=== PATIENT | male | born 1980 | race Caucasian/White ===

== ENCOUNTER 2022-09-06 09:25 | Emergency (ER) | payer OTHER, SELFPAY ==
[2022-09-06 09:32] VITALS: BP 149/91; PULSE 76; RESP 20; TEMP 37; O2SAT 97; BMI 39.3
--- NOTE | 2022-09-06 09:43 | CRLHL7_ITS ---
For Patients: As a result of the Century Cures Act, medical imaging exams and procedure reports are released immediately into your electronic medical record. You may view this report before your referring provider. If you have questions, please contact your health care provider. Indication: Shortness of breath, abdominal pain Technique: Volumetric multidetector CT images of the chest, abdomen, and pelvis were obtained after the administration of intravenous contrast. 134 cc Isovue 370 low osmolar intravenous contrast Comparison: CT chest June 13, 2021 FINDINGS: CHEST The thoracic inlet is unremarkable. The thyroid gland is within normal limits. The thoracic aorta is nonaneurysmal. There is no filling defect to suggest pulmonary embolus. There is no mediastinal, hilar, or axillary adenopathy. There is no focal consolidation, effusion, or pneumothorax. There is demonstration of a 5.8 millimeter granuloma in the peripheral left lower lobe. The thoracic osseus structures are intact without fracture, lytic, or blastic lesion. The thoracic vertebral body heights are grossly maintained with minimal endplate Schmorl`s defects. There is no significant spondylolisthesis or displaced fracture. ABDOMEN AND PELVIS The liver is normal in attenuation and size. The portal vein is patent. The spleen is normal in attenuation and size. The gallbladder is unremarkable without radiopaque calculus. There is no intrahepatic or common ductal dilatation. There is mild thickening of the gastric antrum with mild hiatal hernia. The pancreas is normal in enhancement without significant atrophy. The adrenal glands are unremarkable without evidence of adenoma. The kidneys are preserved and corticomedullary differentiation. There is no hydronephrosis or radiopaque calculus. There is a moderate diffuse amount of intracolonic stool. There is minimal distal colonic diverticulosis. The appendix is unremarkable without significant inflammatory change. The abdominal aorta is nonaneurysmal with no significant atherosclerotic disease. The remaining solid pelvic viscera are otherwise grossly unremarkable. There is no pathologically enlarged epigastric, mesenteric, retroperitoneal, or pelvic sidewall lymph node. There is diastasis of the rectus musculature with a moderate fat containing umbilical hernia. There is no obvious inflammatory change to suggest incarceration. There is no free air or free fluid. The visualized osseous structures are grossly intact without evidence of displaced fracture, lytic or blastic lesion. The lumbar vertebral body heights are grossly maintained with minimal endplate Schmorl`s defects. There is mild multilevel degenerative disc disease. There is no evidence of displaced fracture dislocation. Impression: 1. No acute cardiopulmonary abnormality. 2. Diastasis of the rectus musculature with superimposed moderate fat containing umbilical hernia. No obvious inflammatory change to suggest incarceration. 3. Mild chronic gastritis changes. Small hiatal hernia. Otherwise, no acute intra-abdominal abnormalities are appreciated. Please note that all CT scans at this facility use dose modulation, iterative reconstruction, and/or weight-based dosing when appropriate to reduce radiation dose to as low as reasonably achievable. Dictated by Dayne Arvizu MD @ 09/06/2022 10:53:48 AM (Electronically Signed)
--- NOTE | 2022-09-06 09:50 | ED.GENADULT ---
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 Patient reports he got diffuse lower abdominal discomfort he has got early satiety he reports as well as he says occasion with activity he feels little short of breath he has had this epigastric discomfort for the last year so on and off with exertion. He does not really feel palpable lump or pressure all the time but he does feel pain after exertion. Any feels that now. It is better than it was this morning. He has had no diabetes, does not take medicine for cholesterol, does not smoke. Related Data Home Medications Medication Instructions Recorded Confirmed No Known Home Medications 05/21/22 09/06/22 Allergies Allergy/AdvReac Type Severity Reaction Status Date / Time No Known Drug Allergies Allergy Verified 09/06/22 08:46 Review of Systems Status of ROS: Reports: 6 or more systems reviewed and unremarkable except as noted in History and below [facility] Medical History RLQ abdominal pain ?R10.31 - Right lower quadrant pain (ICD-10) Umbilical pain ?R10.33 - Periumbilical pain (ICD-10) Social History Smoking Status: Never smoker Do you use any of these nicotine containing products: None Second hand tobacco smoke exposure: No How often do you have a drink containing alcohol: 4 or more times a week How many standard drinks containing alcohol do you have on a typical day: 3 or 4 How often do you have six or more drinks on one occasion: Weekly AUDIT-C Alcohol total score: 8 Non-prescribed substance use: denies use Exam Narrative: Exam Narrative: Objective: Jeff is in no apparent distress Vital signs unremarkable slightly borderline blood pressure HEENT is unremarkable neck is supple heart rhythm regular without murmur abdomen increased BMI, schedule like slight bruise in left lower abdomen. He has got some mild periumbilical palpation tenderness just above the umbilicus superior to it but no palpable mass or rent Denies symptoms extremities are no edema neurologic nonfocal good peripheral perfusion noted Const: Vital Signs, click to edit/add: Vital Signs - 24 hr 09/06/22 09:32 Temperature 98.6 F Pulse Rate [Femora l] 76 Respiratory Rate 20 Blood Pressure [Ri ght Forearm] 149/91 H Pulse Oximetry 97 Oxygen Delivery Me thod Room Air Course Vital Signs Vital signs: Initial Vital Signs Temperature 98.6 F 09/06/22 09:32 Temperature Source Temporal Artery Scan 09/06/22 09:32 Pulse Rate 76 09/06/22 09:32 Respiratory Rate 20 09/06/22 09:32 Blood Pressure 149/91 H 09/06/22 09:32 Blood Pressure Mean 110 H 09/06/22 09:32 Blood Pressure Position Sitting 09/06/22 09:32 Pulse Oximetry 97 09/06/22 09:32 Oxygen Delivery Method Room Air 09/06/22 09:32 Vital Signs Temperature 98.6 F 09/06/22 09:32 Pulse Rate 76 09/06/22 09:32 Respiratory Rate 20 09/06/22 09:32 Blood Pressure 149/91 H 09/06/22 09:32 Pulse Oximetry 97 09/06/22 09:32 Oxygen Delivery Method Room Air 09/06/22 09:32 Temperature 98.6 F 09/06/22 09:32 Pulse Rate 76 09/06/22 09:32 Respiratory Rate 20 09/06/22 09:32 Blood Pressure 149/91 H 09/06/22 09:32 Pulse Oximetry 97 09/06/22 09:32 Oxygen Delivery Method Room Air 09/06/22 09:32 Medical Decision Making [facility] Narrative Medical decision making narrative: Jeff is a pleasant 42-year-old male was lifting something and felt pain is a para in his periumbilical area, he has had this for about the last year on and off. I suspect he has got some type of ventral hernia. He also states that he has had some shortness of breath with exertion and I think he should get a stress echocardiogram will also check a troponin EKG today that shows normal sinus rhythm no acute ST T wave changes. Will check electrolytes, labs, I think also a CT of his chest and abdomen be appropriate given his history of early satiety and some shortness of breath with activity occasionally, and his periumbilical pain to rule out hernia. Addendum 11:[address] scan of the chest looks largely unremarkable he has got a granuloma present in left lower lung. no suggestion of incarceration, but a fat containing rectus diastasis type hernia. At this point I recommend he see general surgery guarding his hernia, no heavy lifting, would recommend Prilosec 20 mg daily for his gastritis I think that will help with his early satiety as well. He should follow up with his regular doctor to consider a stress echocardiogram regarding shortness of breath with activity. He will follow-up sooner to ER if problems or concerns. Lab Data Labs: Lab Results 09/06/22 Range/Units 09:55 WBC 4.86 (4.50-11.00) K/uL RBC 4.82 (4.30-5.90) m/uL Hgb 14.0 (13.5-17.5) gm/dL Hct 41.0 (37.0-53.0) % MCV 85 (80-100) fL MCH 29 (26-34) pg MCHC 34 (32-36) gm/dL RDW Coeff of Lauren 12.0 (11.5-15.5) % Plt Count 219 (140-440) K/uL Neut % (Auto) 57.8 (42.0-72.0) % Lymph % (Auto) 34.2 (20-44) % Coke % (Auto) 6.4 (0.0-11.0) % Eos % (Auto) 1.2 (0.0-7.0) % Baso % (Auto) 0.4 (0.0-3.0) % Neut # (Auto) 2.81 (1.7-7.0) K/uL Lymph # (Auto) 1.66 (0.90-2.90) K/uL Coke # (Auto) 0.30 (0.00-0.90) K/UL Eos # (Auto) 0.06 (0.00-0.50) K/uL Baso # (Auto) 0.02 (0.00-0.30) K/uL D-Dimer Quant (PE/DVT) < 0.27 (0.00-0.50) ug/ml Sodium 138 (135-149) mmol/L Potassium 4.5 (3.6-5.1) mmol/L Chloride 107 (96-114) mmol/L Carbon Dioxide 24 (20-32) mmol/L BUN 15 (5-24) mg/dL Creatinine 1.1 (0.5-1.5) mg/dL Estimated Creat Clear 88.48 Estimated GFR 85 ml/min Glucose 113 (60-115) mg/dL Calcium 9.1 (8.4-10.6) mg/dL Total Bilirubin 0.7 (0.1-1.5) mg/dL Direct Bilirubin 0.3 (0.0-0.5) mg/dL AST 39 H (12-35) U/L ALT 48 (4-50) U/L Alkaline Phosphatase 98 (40-150) U/L C-Reactive Protein 0.8 (0.5-1.0) mg/dL NT-Pro-B Natriuret Pep 87 pg/mL Total Protein 7.3 (6.0-8.3) g/dL Albumin 4.3 (3.3-5.0) g/dL POC Troponin I 0.00 L (0.01-0.04) ng/ml Discharge Plan Discharge Clinical Impression: SONG (dyspnea on exertion), Gastritis, Hernia, ventral Patient Disposition: Home, Self-Care Condition: Stable Additional Instructions: 1. See primary care doctor in the next 2-3 days to recheck how he is doing on Prilosec 20 mg daily to help with gastritis. 2. Please make an appointment with the general surgeons, we can help him with this, to discuss his ventral hernia. 3. Light activity no heavy lifting 4. Would recommend consider a stress echocardiogram from your outpatient doctor, as you have had some shortness of breath occasionally and this should be checked to make sure there is no heart issue. Your EKG today and troponin level which is a measure of heart function was normal. Return to the ED as you need to Activity Level: Light activity Discharge Diet: Regular Prescriptions: No Action No Known Home Medications Follow Up/Referrals: Provider,Not a Local [Primary Care Provider] - Stand Alone Forms: MyHealth Info Instructions
[2022-09-06] MEDS: 0.9 % SODIUM CHLORIDE 500 ML 500 ML IV (10:01)
[2022-09-06 10:12] LABS: Basophils Absolute Auto 0.02 K/uL (0.00-0.30); Basophils Percent Auto 0.4 % (0.0-3.0); Eosinophils Absolute Auto 0.06 K/uL (0.00-0.50); Eosinophils Percent Auto 1.2 % (0.0-7.0); Lymphocytes Absolute Auto 1.66 K/uL (0.90-2.90); Lymphocytes Percent Auto 34.2 % (20-44); Mean Corpuscular HGB Conc 34 gm/dL (32-36); Mean Corpuscular Hemoglobin 29 pg (26-34); Mean Corpuscular Volume 85 fL (80-100); Monocytes Percent Auto 6.4 % (0.0-11.0); Neutrophils Absolute Auto 2.81 K/uL (1.7-7.0); Neutrophils Percent Auto 57.8 % (42.0-72.0); Platelet Count* 219 K/uL (140-440); Red Blood Count 4.82 m/uL (4.30-5.90); White Blood Count* 4.86 K/uL (4.50-11.00)
[2022-09-06 10:18] LABS: Slide Review Reflex No
[2022-09-06 10:26] LABS: Albumin* 4.3 g/dL (3.3-5.0)
[2022-09-06 10:27] LABS: Chloride* 107 mmol/L (96-114); Potassium* 4.5 mmol/L (3.6-5.1); Sodium* 138 mmol/L (135-149)
[2022-09-06 10:29] LABS: Aspartate Amino Transferase* 39 U/L (12-35); Bilirubin Direct* 0.3 mg/dL (0.0-0.5); Bilirubin Total* 0.7 mg/dL (0.1-1.5); Total Protein* 7.3 g/dL (6.0-8.3)
[2022-09-06 10:30] LABS: Alanine Aminotransferase* 48 U/L (4-50); Alkaline Phosphatase* 98 U/L (40-150); Creatinine* 1.1 mg/dL (0.5-1.5); Est. Creatinine Clearance* 88.48; Estimated Glomerular Filt Rate 85 ml/min
[2022-09-06 10:31] LABS: Blood Urea Nitrogen* 15 mg/dL (5-24); Calcium* 9.1 mg/dL (8.4-10.6); Carbon Dioxide* 24 mmol/L (20-32); Glucose* 113 mg/dL (60-115)
[2022-09-06 10:34] LABS: C Reactive Protein* 0.8 mg/dL (0.5-1.0)
[2022-09-06 10:39] LABS: D Dimer Quantitative* < 0.27 ug/ml (0.00-0.50)
[2022-09-06 10:42] LABS: NT Pro B Type NatriureticPept* 87 pg/mL
== END 2022-09-06 11:26 | disposition home or self-care (01) ==
PROVIDERS: Emergency Provider Family Medicine
DX: R06.00 Dyspnea, unspecified (principal); K29.70 Gastritis, unspecified, without bleeding; K43.9 Ventral hernia without obstruction or gangrene
CPT/HCPCS: 36415; 71260; 74177; 80048; 80076; 83880; 84484; 85025; 85379; 86140; 93005; 94761; 99284; 99285; J7120; Q9967

== ENCOUNTER 2024-09-03 08:04 | Outpatient (CLI) | payer OTHER, SELFPAY | END 2024-09-03 08:05 | disposition home or self-care (01) | LOC: NFLDREF 09-10 01:32 | PROVIDERS: PCP Physician Assistant Medical; Referring Provider Physician Assistant Medical; Visit Provider Physician Assistant Medical | DX: Z00.01 Encounter for general adult medical examination with abnormal findings (principal); I10 Essential (primary) hypertension; E78.2 Mixed hyperlipidemia; Z12.5 Encounter for screening for malignant neoplasm of prostate | CPT/HCPCS: 80053; 80061; 84443; G0103 ==

== ENCOUNTER 2024-10-02 13:19 | Outpatient (CLI) | payer OTHER, SELFPAY ==
--- NOTE | 2024-10-14 12:27 | W.PM.SLEEP ---
Sleep Study Details Details Interpreting Provider: Galina Date of Sleep Study: 10/02/24 Sleep Study Details: STUDY TYPE:? Home unattended ? BMI:? 39.1 ORDERING PROVIDER:Oseas Morales INDICATION:? Concern about sleep apnea ? SLEEP SUMMARY:? 497 minutes monitored RESPIRATORY SUMMARY:? AHI 15.5, low oxygen 83 2.4% of study oxygen less than 90% Snoring 71.6% PERIODIC LIMB MOVEMENTS OF SLEEP:? Not recorded CARDIAC:? Range 52-113, mean 70 beats per minute IMPRESSION:? Moderate obstructive sleep apnea RECOMMENDATION: Treatment options include CPAP, dental appliance and weight loss.
== END 2024-10-02 13:20 | disposition home or self-care (01) ==
LOC: SLEEP 13:21
PROVIDERS: PCP Physician Assistant Medical; Visit Provider Physician Assistant Medical
DX: G47.33 Obstructive sleep apnea (adult) (pediatric) (principal)
CPT/HCPCS: 95806

== ENCOUNTER 2024-10-16 07:12 | Outpatient (CLI) | payer OTHER, SELFPAY ==
--- NOTE | 2024-10-16 08:24 | P.ANES_ITS ---
Anesthesia Charges Start Date/Time Anesthesia Start Date: 10/16/24 Anesthesia Start Time: 07:49 Stop Date/Time Anesthesia Stop Date: 10/16/24 Anesthesia Stop Time: 08:22 Coding CPT Codes CPT Codes: ANES LWR INTST NDSC NOS - [id number] ([id number]) P3 - PATIENT W/SEVERE SYS DISEASE, QK - SEARCH MARKETING COORDINATOR 2-4 CNCRNT ANES PROC, QX - GENERAL ENGINEERING TEACHER SVC W/ MD MED DIRECTION
--- NOTE | 2024-10-16 08:24 | W.ANESCHARGE ---
Anesthesia Charges Start Date/Time Anesthesia Start Date: 10/16/24 Anesthesia Start Time: 07:49 Stop Date/Time Anesthesia Stop Date: 10/16/24 Anesthesia Stop Time: 08:22 Coding CPT Codes CPT Codes: ANES LWR INTST NDSC NOS - 81810 ([id number]) P3 - PATIENT W/SEVERE SYS DISEASE, QK - CHIEF ENTERPRISE ARCHITECT 2-4 CNCRNT ANES PROC, QX - LEATHER SCRUBBER SVC W/ MD MED DIRECTION
--- NOTE | 2024-10-16 10:12 | P.ANES_ITS ---
Anesthesia Charges Start Date/Time Anesthesia Start Date: 10/16/24 Anesthesia Start Time: 07:49 Stop Date/Time Anesthesia Stop Date: 10/16/24 Anesthesia Stop Time: 08:22 Coding CPT Codes CPT Codes: ANES LWR INTST NDSC NOS - 82898 ([id number]) P3 - PATIENT W/SEVERE SYS DISEASE, QK - SPACE PLANNER 2-4 CNCRNT ANES PROC, QX - OPTICAL GOODS DRILL OPERATOR SVC W/ MD MED DIRECTION
--- NOTE | 2024-10-16 10:12 | W.ANESCHARGE ---
Anesthesia Charges Start Date/Time Anesthesia Start Date: 10/16/24 Anesthesia Start Time: 07:49 Stop Date/Time Anesthesia Stop Date: 10/16/24 Anesthesia Stop Time: 08:22 Coding CPT Codes CPT Codes: ANES LWR INTST NDSC NOS - [id number] ([id number]) P3 - PATIENT W/SEVERE SYS DISEASE, QK - PRINTING SUPERVISOR 2-4 CNCRNT ANES PROC, QX - MALE MODEL SVC W/ MD MED DIRECTION
--- OUTSIDE RECORDS SUMMARY | 2024-10-17 00:49 | XMS_ITS | Clinical Summary ---
Author Organization [facility] Address [address], [place] [address] Care Team Providers Care Rn X Ray Name Role Phone No Primary/Referring, Phy Primary Care Provider Unavailable Source Comments You are receiving this document as you are listed as the primary care provider,follow-up provider, or the patient has been referred to you for consultation.This is in compliance with the Medicare and[facility] EHR Incentive Program,which states Providers who transition their patient to another setting of careor provider of care or refers their patient to another provider of care shouldprovide summary care record for each transition of care or referral. [facility] Allergies No known active allergies Medications No known medications Social History Tobacco Use Types Packs/Day Years Used Date Smoking Tobacco: Never Assessed Sex and Gender Information Value Date Recorded Sex Assigned at Not on file Legal Sex Male 4:49 AM CDT Gender Identity Not on file Sexual Orientation Not on file Plan of Treatment Health Maintenance Due Date Last Done Comments Colon Cancer Screening Plan Due 1978 Hep C Screening (Preventive Services) 1978 HIV Screening (Preventive Services) 1994 Adult Preventive Visit 1996 HepB Vaccine (1) 1997 Cholesterol 2013 DTaP/Tdap/Td Vaccine (2 - Tdap) 06/16/2023 06/16/2013, 06/14/2005 COVID-19 Vaccine (3 - 2023-2 5 season) 2023 10/15/2020, 09/23/2020 Influenza Vaccine (Season Ended) 2024 03/10/2022 Zoster/Shingles Vaccine (1 o f 2) 2028 HepA Vaccine Aged Out No longer eligi ble based on patient's age to complete this topic Hib Vaccine Aged Out No longer eligi ble based on patient's age to complete this topic IPV (Polio) Vaccine Aged Out No longe r eligible based on patient's age to complete this topic MCV4 Vaccine Aged Out No longer eligi ble based on patient's age to complete this topic Meningococcal B Vaccine Aged Out No l onger eligible based on patient's age to complete this topic Pneumococcal Vaccine Aged Out No long er eligible based on patient's age to complete this topic Insurance [employer] Care Teams Rn X Ray Relationship Specialty Start Date End Date No Primary/Referring, Phy PCP - General 04/17/23
== END 2024-10-16 07:13 | disposition home or self-care (01) ==
LOC: OP CLINIC 07:12
PROVIDERS: PCP Physician Assistant Medical; Visit Provider Surgery
DX: Z12.11 Encounter for screening for malignant neoplasm of colon (principal); D12.2 Benign neoplasm of ascending colon; D12.4 Benign neoplasm of descending colon; D12.5 Benign neoplasm of sigmoid colon; D12.8 Benign neoplasm of rectum
CPT/HCPCS: 00811; 00812; 45385; J2704

== ENCOUNTER 2024-12-15 07:24 | Outpatient (CLI) | payer OTHER, SELFPAY | END 2024-12-15 07:25 | disposition home or self-care (01) | LOC: NFLDREF 12-24 15:13 | PROVIDERS: PCP Physician Assistant Medical; Referring Provider Physician Assistant Medical; Visit Provider Physician Assistant Medical | DX: E78.2 Mixed hyperlipidemia (principal) | CPT/HCPCS: 80061; 84450; 84460 ==